=== PATIENT | female | born 1950 | race Caucasian/White ===

== ENCOUNTER 2024-06-20 08:09 | Outpatient (CLI) | payer OTHER | END 2024-06-20 13:55 | disposition home or self-care (01) | LOC: RAD 08:09 | PROVIDERS: ATTEND Ophthalmology | DX: Z01.811 Encounter for preprocedural respiratory examination (principal) ==

== ENCOUNTER 2024-09-17 08:20 | Emergency (ER) | payer OTHER ==
[~2024-09-17] VITALS: Ht 162.6 cm; Wt 54.4 kg
[2024-09-17] MEDS ORDERED: LISINOPRIL20 MG (08:37)
[2024-09-17] MEDS ORDERED: ACID REDUCER20 M1 (08:37)
[2024-09-17] MEDS ORDERED: HYDROCHLOROTHIA25 MG (08:37)
[2024-09-17] MEDS ORDERED: ALENDRONAT70 MG/75 M (08:38)
[2024-09-17] MEDS ORDERED: SIMVASTATIN5 MG (08:38)
[2024-09-17 09:53] LABS: HEMATOCRIT 37.3 % (36.0-45.00); HEMOGLOBIN 12.4 g/dL (12.0-15.00); MEAN CELL VOLUME 95.3 fL (80.00-100.00); MEAN CORPUSCULAR HEMOGLOBIN 31.7 pg (27.00-32.0); MEAN CORPUSCULAR HGB CONC 33.3 g/dl (32.0-36.0); PLATELET COUNT 187 K/uL (150-450); RED BLOOD COUNT 3.91 M/uL (4.00-6.00); RED CELL DISTRIBUTION WIDTH 13.2 % (11.5-14.5)
[2024-09-17] MEDS ORDERED: PEPCID AC20 MG PO (11:50)
[2024-09-17] MEDS ORDERED: BENZONATATE200 M1 PO (11:50)
[2024-09-17] MEDS ORDERED: OSEL75CA PO (11:50)
== END 2024-09-17 11:55 | disposition home or self-care (01) ==
LOC: ER 08:21
PROVIDERS: General Practice
DX: J09.X2 Influenza due to identified novel influenza A virus with other respiratory manifestations (principal); R53.1 Weakness; Z20.822 Contact with and (suspected) exposure to COVID-19